=== PATIENT | female | born 1980 | race Caucasian/White ===

== ENCOUNTER 2019-12-11 16:02 | Inpatient (IN) | payer OTHER, SELFPAY ==
[~2019-12-11] VITALS: Ht 154.9 cm; Wt 71.7 kg
[2019-12-11 16:06] VITALS: Ht 154.9 cm; Wt 71.7 kg
--- NOTE | 2019-12-11 16:11 | NUR ---
PLACED IN BED 14 FOR BEDSIDE TRIAGE, PT PALE, WARM AND DIAPHORETIC, DR DONALDSON MADE AWARE.
--- NOTE | 2019-12-11 16:21 | NUR ---
ASSUMED PATIENT CARE, NURSING ASSESSMENT COMPLETED. ENDORSING GENERALIZED WEAKNESS, N/V, DIZZINESS X 3-4 DAYS. PATIENT RECENTLY STARTED ON A NEW MED, LEVOTHYROXINE.
[2019-12-11 16:54] LABS: PLATELET COUNT 125 x10^3mcL (130-400); RED CELL DISTRIBUTION WIDTH 13.4 % (11.5-14.5)
[2019-12-11 17:02] LABS: CARBON DIOXIDE 22.6 mmol/L (21-32); CHLORIDE SERUM 99 mmol/L (98-107); GFR1 > 60 mL/min; GLUCOSE SERUM 113 mg/dL (74-106); POTASSIUM SERUM 3.5 mmol/L (3.5-5.1); SODIUM SERUM 133 mmol/L (136-145)
--- NOTE | 2019-12-11 17:12 | NUR ---
PT MEDICATED PER EMAR, PT DENIES ANY CHANCE OF AT TIME OF TECHNICAL TRAINING SPECIALIST.
[2019-12-11 17:15] LABS: ALKALINE PHOSPHATASE 71 U/L (46-116); ALT/SGPT 46 U/L (14-59); AST/SGOT 37 U/L (15-37); BAND NEUTROPHIL 8 % (0-10); BASOPHIL 0 % (0-2); BILIRUBIN TOTAL 0.4 mg/dL (0.20-1.00); FREE T4 0.93 ng/dL (0.76-1.46); MAGNESIUM 1.6 mg/dL (1.8-2.4); METAMYELOCTE 1 % (0-2); MONOCYTE 10 % (0-7); MYELOCYTE 1 % (0-2); SEGMENTED NEUTROPHILS 75 % (37-75); rbc morphology (normal/abnorm) NORMAL (NORMAL)
[2019-12-11 17:16] LABS: PLATELET MORPHOLOGY PLATELETS DECREASED
[2019-12-11 17:17] LABS: ALBUMIN 2.6 g/dL (3.4-5.0)
[2019-12-11 19:37] LABS: microscopic required? YES; urine erythrocyte 3+ (NEGATIVE)
--- NOTE | 2019-12-11 20:11 | NUR ---
PTS MOTHER CAME TO DROP OFF PTS PHONE BUSINESS BANKING MANAGER. PHONE BUSINESS BANKING MANAGER WAS LEFT WITH PT.
[2019-12-11] MEDS ORDERED: OXCARBAZEPINE300 M1 PO (20:34)
[2019-12-11] MEDS ORDERED: KEPPRA750 MG PO ×2 (20:36→20:37)
[2019-12-11] MEDS ORDERED: DEPAKOTE250 MG PO (20:55)
--- NOTE | 2019-12-11 21:00 | NUR ---
RECIEVED REPORT FROM ER NURSE FLORESITA
[2019-12-11 21:02] LABS: AMPHETAMINE QUAL UR NONE DETECTED (See below)
--- NOTE | 2019-12-11 21:50 | NUR ---
RECIEVED PATIENT FROM ER VIA [facility]. PATIENT WAS BROUGHT BY TRANSPORT. PATIENT WAS ABLE TO AMBULATE FROM [facility] TO BED WITHIN A SHORT DISTANCE. BED IN LOWEST AND LOCKED POSITION. CALL LIGHT WITHIN REACH. PATIENT ORIENTED TO ROOM SURROUNDINGS AND CALL LIGHT SYSTEM. WILL CONT TO MONITOR.
--- NOTE | 2019-12-12 00:05 | NUR ---
PATIENT REPORTED DURING MED PASS INCORRECT DOSAGE OF DEPAKOTE AND TRILEPTAL. PATIENT REQUESTED TO SPEAK TO DOCTORS REGARDING DOSAGE. PATIENT WAS ABLE TO REPORT BACK VERIFICATION OF CORRECT DOSAGE. COMMUNICATED WITH DOCTORS THE CORRECT DOSAGE OF EACH MEDICATION AND REQUESTED A ONE TIME DOSE FOR TONIGHT PATIENT REFUSED TO TAKE THE DOSAGE THAT WAS SCHEDULED. CORRECT DOSAGE OF DEPAKOTE IS 625MG BID AND TRLEPTAL 900MG BID. ALL COMFORT CARE ACCOUNTED FOR AT THIS TIME. BED IN LOWEST POSITION, CALL LIGHT WITHIN REACH. WILL CONTINUE TO MONITOR.
[2019-12-12 03:49] VITALS: BP 92/64
[2019-12-12 05:49] VITALS: BP 97/57
--- NOTE | 2019-12-12 07:35 | NUR ---
RECEIVED PT. IN BED A/A/O X3. NO SOB, NO N/V NOTED. PT. DENIES ANY PAIN AT THIS TIME. IVF NS RUNNING AT 100 CC/HR VIA IV SITE AT R AC. BED IN LOW POS., CALL LIGHT WITHIN REACH. SIDE RAILS UP X3.
[2019-12-12 08:00] LABS: CALCIUM 7.7 mg/dL (8.5-10.1); CARBON DIOXIDE 25.1 mmol/L (21-32); CHLORIDE SERUM 106 mmol/L (98-107); CREATININE SERUM 0.7 mg/dL (0.6-1.0); GFR1 > 60 mL/min; GLUCOSE SERUM 85 mg/dL (74-106); MAGNESIUM 1.9 mg/dL (1.8-2.4); PHOSPHOROUS 1.9 mg/dL (2.5-4.9); POTASSIUM SERUM 3.7 mmol/L (3.5-5.1); SODIUM SERUM 139 mmol/L (136-145)
[2019-12-12 08:09] LABS: PLATELET COUNT 119 x10^3mcL (130-400); RED CELL DISTRIBUTION WIDTH 13.4 % (11.5-14.5)
[2019-12-12 08:52] VITALS: BP 77/41; BP 98/61
--- NOTE | 2019-12-12 09:03 | NUR ---
RECEIVED ORDER FOR CT GUIDED ABSCESS DRAINAGE FOR RUPTURED APPENDIX. SPOKE WITH RADIOLOGIST CIRCUIT JUDGE DR CAMACHO. HE WOULD LIKE THE SURGEON TO SEE THE PATIENT FIRST. NOTIFIED PATIENT'S NURSE MICHAEL.
[2019-12-12 11:14] LABS: BAND NEUTROPHIL 2 % (0-10); MONOCYTE 10 % (0-7); SEGMENTED NEUTROPHILS 76 % (37-75); rbc morphology (normal/abnorm) NORMAL (NORMAL)
[2019-12-12 12:08] VITALS: BP 104/56
--- NOTE | 2019-12-12 12:25 | NUR ---
PT. IS BEING PLACED ON TELE. MONITOR #16 PER PHYSICIAN'S ORDER. TELE. MONITOR SHOWS NSR.
[2019-12-12 16:14] VITALS: BP 133/62
--- NOTE | 2019-12-12 17:45 | NUR ---
REMAINS IN STABLE CONDITION AT THIS TIME. WILL CONTINUE TO MONITOR.
--- NOTE | 2019-12-12 19:40 | NUR ---
RECEIVED PT FROM DAYSRIFT NURSE. PT IS AAOX4, DENIES HEADACHE/NAUSEA/ DIZZINESS. PT IS TELE #16, NSR, DENIES CHEST PAIN. PULSES ARE EQUAL BILATERALLY, NO EDEMA NOTED. PT IS CTA, ON RA, DENIES SOB. NO ACUTE DISTRESS NOTED, EVEN AND UNLABORED BREATHING. PT HAS ACTIVE BOWEL SOUNDS, LAST BM REPORTED ON 12/07 WATERY STOOL. PT REPORTS INTERMITTENT ABDOMINAL PAIN, ALLEVIATED WITH PAIN MEDICATION PRN. PT VOIDS WITHOUT DIFFICULTY. IV IS TO RFA, SITE IS INTACT, NO REDNESS OR SWELLING NOTED. PT IS CALM ADN COOPERATIVE. BED IN LOWEST POSITION, CALL LIGHT WITHIN REACH. WILL CONTINUE TO MONITOR.
[2019-12-12 21:22] VITALS: BP 106/77
--- NOTE | 2019-12-12 23:10 | NUR ---
PATIENT REPORTED DURING MED PASS INCORRECT DOSAGE OF DEPAKOTE AND TRILEPTAL. PATIENT REQUESTED TO SPEAK TO DOCTORS REGARDING DOSAGE. PATIENT WAS ABLE TO REPORT BACK VERIFICATION OF CORRECT DOSAGE. COMMUNICATED WITH DOCTORS THE CORRECT DOSAGE OF EACH MEDICATION AND REQUESTED A ONE TIME DOSE FOR TONIGHT A PATIENT REFUSED TO TAKE THE DOSAGE THAT WAS SCHEDULED. CORRECT DOSAGE OF DEPAKOTE IS 625MG BID AND TRLEPTAL 900MG BID. ALL COMFORT CARE ACCOUNTED FOR AT THIS TIME. BED IN LOWEST POSITION, CALL LIGHT WITHIN REACH. WILL CONTINUE TO MONITOR.
[2019-12-13 05:56] VITALS: BP 110/58
[2019-12-13 06:41] LABS: PLATELET COUNT 158 x10^3mcL (130-400); RED CELL DISTRIBUTION WIDTH 14.1 % (11.5-14.5)
[2019-12-13 06:42] LABS: CALCIUM 7.7 mg/dL (8.5-10.1); CHLORIDE SERUM 109 mmol/L (98-107); CREATININE SERUM 0.6 mg/dL (0.6-1.0); GFR1 > 60 mL/min; GLUCOSE SERUM 69 mg/dL (74-106); PHOSPHOROUS 2.7 mg/dL (2.5-4.9); POTASSIUM SERUM 3.9 mmol/L (3.5-5.1); SODIUM SERUM 142 mmol/L (136-145)
--- NOTE | 2019-12-13 07:10 | NUR ---
SEEN RESTING WITH EYES CLOSED. BREATHING E/U ON ROOM AIR. TELE#[address] HR=91. KEPT NPO X MEDS. IVF NS TO RAC INFUSING WELL. BRP. CALL LIGHT PLACED WITHIN EASY REACH, SIDERAILS UPX2.
--- NOTE | 2019-12-13 07:26 | NUR ---
PATIENT RESTED INTERMITTENTLY WITH NO ACUTE DISTRESS NOTED. PATIENT REPORTED ABDOMINAL PAIN, GIVEN NORCO PRN. PATIENT ABLE TO AMBULATE TO THE RESTROOM WITH SLOW GAIT. NO ACUTE CHANGES IN PATIENTS STATUS AT THIS TIME. BED IN LOWEST POSITION, CALL LIGHT WITHIN REACH. ENDORSED CARE TO DAYSHIFT NURSE.
[2019-12-13 07:39] VITALS: BP 103/44
--- NOTE | 2019-12-13 09:15 | NUR ---
AM SCHEDULED MEDS GIVEN. NO ANY SEIZURE ACTIVITY NOTED. IVF NS INFUSING WELL TO RAC IV SITE. STATED ABDOMINAL PAIN IS TOLERABLE AT THIS TIME.
[2019-12-13 11:32] LABS: BAND NEUTROPHIL 2 % (0-10); MONOCYTE 10 % (0-7); SEGMENTED NEUTROPHILS 78 % (37-75); rbc morphology (normal/abnorm) NORMAL (NORMAL)
[2019-12-13 12:00] VITALS: BP 108/71
--- NOTE | 2019-12-13 12:10 | NUR ---
C/O OF IV SITE TO RAC HURTING, NO ERYTHEMA OR SWELLING, IV CATHETER REMOVED DRSG APPLIED. NEW IV CATHETER#2O INSERTED TO LFA IV SITE WITH GOOD BLD RETURNED AND FLUSHED WELL. PATIENT MADE AWARE OF LAPAROSCOPIC APPENDECTOMY, STATED DOCTOR CECILLE ALREADY EXPLAINED TO HER. CONSENT FOR LAPAROSCOPIC APPENDECTOMY SIGNED BY PATIENT WHO IS AWAKE, ALERT, ORIENTED X4.
--- NOTE | 2019-12-13 12:14 | NUR ---
BROUGHT TO OR VIA BED. NO ANY DISTRESS NOTED.
--- NOTE | 2019-12-13 15:33 | NUR ---
RECEIVED BACK FROM OR VIA BED, S/P LAP APPENDECTOMY, SEEN DROWSY, RESTING WITH EYES CLOSED, EASILY TO AROUSE. O2 2LPM INPLACE, O2SAT 94%, SURGICAL INCISION TO ABDOMEN X3 COVERED WITH BANDAID CDI, LEIGH SITE TO RLQ WITH DRSG NOTED WITH BLOOD STAIN, DRAIN TO BULB NOTED SEROSANGUNOUS IN COLOR. TELE# INPLACE ST GW=645. IVF NS TO LAC RECONNECTED AND INFUSING AT 100ML/HR. CALL LIGHT PLACED WITHIN EASY REACH, SIDERAIL UP X2. WILL CONTINUE TO MONITOR.
[2019-12-13 15:41] VITALS: BP 128/77
[2019-12-13 17:13] VITALS: BP 116/79
--- NOTE | 2019-12-13 17:50 | NUR ---
FEBRILE 100.1, TYLENOL PO GIVEN. WILL CONTINUE TO MONITOR.
--- NOTE | 2019-12-13 19:00 | NUR ---
NO ANY DISTRESS THROUGHOUT SHIFT. DENIES NAUSEA. MORPHINE 3MG IVP GIVEN X1 FOR SURGICAL SITE PAIN WITH GOOD RELIEF. O2 2LPM MAINTAINED, O2SAT 95%. KEPT NPO. IVF D5NS AT 70ML/HR INFUSING WELL TO RFA IV SITE.
--- NOTE | 2019-12-13 19:50 | NUR ---
REPORT RECIEVED FROM DAY SHIFT NURSE, PT RESTING IN BED, EASILY AROUSABLE, A&OX4, SEIZURE PRECAUTION IN PLACE. PT. DENIES SINGER, N/V, RR EVEN AND UNLABORED, CHEST RISE SYM., SLGHT SOB WHEN AMBULATING, TELE 16 NSR, DENIES CHEST PAIN/ PRESSURE, LEIGH DRAIN 50ML SERASANGUINEOUS, R WRIST IV INTACT AND WNL, BED IN LOWEST POSITION, CALL LIGHT WITHIN REACH, SIDE RAILS UPX2, WILL CONTINUE TO MONITOR.
--- NOTE | 2019-12-14 01:23 | NUR ---
PT. RESTING IN BED, EASILY AROUSABLE, RR EVEN AND UNLABORED, PT. ON RA, CHEST RISE SYMT, TELE 16 NSR, LEIGH DRAIN SERASANGOUS, LEIGH INCISION DRESSING DCI, R WRIST IV WNL, BED IN LOWEST POSITION, CALL LIGHT WITHIN REACH, SIDE RAILS UP X2, SEIZURE PRECUATION IN PLACE, WILL CONTINUE TO MONITOR.
[2019-12-14 05:08] VITALS: BP 115/74
--- NOTE | 2019-12-14 06:37 | NUR ---
PT. RESTING IN BED W/ EYES CLOSED, NO FACIAL DROOP NOTED, CALM AND COOPERATIVE W/ CARE. RR EVEN AND UNLABORED, CHEST RISE SYMT, PT. ON RA, PT. DENIES CHEST PAIN/ PRESSURE. TELE BOX 16 ST. LEIGH DRAIN 120ML SEROSANGUINEOUS, LEIGH DRAIN INCISION DCI, BANDAIDX3 LLQ, LUQ, MID [place]. SIEZURE PRECUATION IN PLACE, BED IN LOWEST POSITION, CALL LIGHT WITHIN REACH, SR UPX2, WILL ENDORSE TO DAY SHIFT NURSE.
[2019-12-14 06:47] LABS: PLATELET COUNT 202 x10^3mcL (130-400); RED CELL DISTRIBUTION WIDTH 14.2 % (11.5-14.5)
[2019-12-14 07:09] LABS: CALCIUM 7.8 mg/dL (8.5-10.1); CHLORIDE SERUM 108 mmol/L (98-107); CREATININE SERUM 0.6 mg/dL (0.6-1.0); GFR1 > 60 mL/min; GLUCOSE SERUM 126 mg/dL (74-106); POTASSIUM SERUM 3.4 mmol/L (3.5-5.1); SODIUM SERUM 141 mmol/L (136-145)
--- NOTE | 2019-12-14 07:52 | NUR ---
RECEIVED REPORT FROM RADIATION PROTECTION SPECIALIST NURSE. PT IS LAYING IN BED WITH EYES CLOSED. NO SEIZURE ACTIVITY. SEIZURE PADS IN PLACE. PT IS AAOX4. PT DENIES SOB, BREATHING EVEN AND UNLABORED ON 2L NC. TELE #16 SINUS TACHY. PT DENIES CHEST PAIN AND PRESSURE AT THIS MOMENT. S1 AND S2 SOUNDS HEARD, PULSES ARE PALPABLE ON BLE. NO SIGNS OF EDEMA, CAP REFILL <3S. PT WAS COMPLAINING OF PAIN AT INCISION SITE, 10/10; GAVE PO NORCO 7.5MG/325 WILL REASSESS AFTER AN HOUR. INCISION SITE: 3 BANDAIDS AND 1 LEIGH DRAIN SITE, DRY BLOOD STAIN. LEIGH DRAINING SEROSANGUINEOUS. STOMACH IS SOFT AND DISTENDED WITH HYPOACTIVE BOWEL SOUNDS. PT STATING PASSED GAS AND REMAINS NPO. PT WENT UP TO THE BATHROOM WITH MINIMAL ASSISTANCE. PT VOIDED WITH NO DYSURIA. IV ON RIGHT WRIST, D5 NS RUNNING AT 70ML/HR. NO SIGNS OF SWELLING AND REDNESS AT SITE. SCDS AT BLE IN PLACE. CALL LIGHT WITHIN REACH AND BED IN LOWEST POSITION. WILL CONTINUE TO MONITOR.
[2019-12-14 08:16] VITALS: BP 106/73
[2019-12-14 12:05] VITALS: BP 102/73
--- NOTE | 2019-12-14 13:10 | NUR ---
PT COMPLAINING OF PAIN AT INCISION SITE. 04/17. GAVE PRN NORCO 7.5/325MG. WILL REASSESS AND CONTINUE TO MONITOR.
--- NOTE | 2019-12-14 14:10 | NUR ---
PT LAYING DOWN AT BEDSIDE WITH EYES CLOSED, HOB SLIGHTLY ELEVATED. PT ENCOURAGED TO AMBULATE, SCDS IN PLACE. WILL CONTINUE TO MONITOR.
[2019-12-14 17:02] VITALS: BP 117/75
[2019-12-14 17:15] LABS: BAND NEUTROPHIL 4 % (0-10); MONOCYTE 16 % (0-7); SEGMENTED NEUTROPHILS 68 % (37-75)
[2019-12-14 17:16] LABS: PLATELET MORPHOLOGY PLATELETS NORMAL
[2019-12-14 17:22] LABS: rbc morphology (normal/abnorm) NORMAL (NORMAL)
--- NOTE | 2019-12-14 19:28 | NUR ---
PT ENDORSED TO ASPHALT MIXER NURSE. PT IS SITTING UP IN BED AND IS AWAKE. PTS IV ON RIGHT WRIST, 22G. FLUSHED AND PATENT. TELE #16, SINUS TACH 103. DENIES CHEST PAIN AT THIS TIME. PT IS ON NC 2L, FEELS SOB WHEN AMBULATING. PT NEEDS ASSISTANCE TO USE THE BATHROOM. PT STILL EXHIBITS ABD PAIN, 3 BANDAIDS AND 1 ON LEIGH. PT HAS SCDS ON. CALL LIGHT WITHIN REACH AND BED IN LOWEST POSITION.
--- NOTE | 2019-12-14 19:55 | NUR ---
REPORT RECIEVED FROM DAY SHIFT NURSE, PT. RESTING IN BED, EASILY AROUSABLE, A&OX4, ABLE TO FOLLOW COMMANDS, SPEECH CLEAR, NO FACIAL DROOP NOTED, PT. DENIES SINGER/ DIZZINESS. RR EVEN AND UNLABORED, CHEST RISE SYMT, PT ON 2L NC, REPORT SLIGHT SOB WHEN AMBULATING. TELE 16 ST, PT. DENIES CHEST PAIN/ PRESSURE. LEIGH DRAIN NOTED ON MID LOWER UMBLICAL REGION, SEROSANGUINEOUS DRAINAGE NOTED, LEIGH DRESSING DCI, SXI X3 LUQ, LLQ, UMBLICAL DRESSING DCI. SEIZURE PRECAUTION IN PLACE, SR UPX2, BED IN LOWEST POSITION, CALL LIGHT WITHIN REACH, WILL CONTINUE TO MONITOR.
[2019-12-14 20:17] VITALS: BP 165/81
--- NOTE | 2019-12-15 00:12 | NUR ---
PT. RESTING IN BED W/ EYES CLOSED, NO FACIAL DROOP NOTED. RR EVEN AND UNLABORED ON 2L NC, CHEST RISE SYMT. TELE 16 ST. NO SIGNS OF ACUTE DISTRESS NOTED. LEIGH DRAIN SEROSANG, LLQ, LUQ, UMBILICAL REGION SURGICAL INCISION DRESSING DCI. SEIZURE PRECUATION IN PLACE, BED IN LOWEST POSITION, CALL LIGHT WITHIN REACH, WILL CONTINUE TO MONITOR.
[2019-12-15 04:46] VITALS: BP 113/73
[2019-12-15 06:39] LABS: BASOPHIL % 0.1 % (0-2); PLATELET COUNT 237 x10^3mcL (130-400); RED CELL DISTRIBUTION WIDTH 14.5 % (11.5-14.5)
--- NOTE | 2019-12-15 06:45 | NUR ---
PT. RESTING IN BED, EASILY AROUSABLE, NO FACIAL DROOP NOTED, RR EVEN AND UNLABORED ON 2L NC, CHEST RISE SYMT, PT. DENIES SOB. TELE BOX 16, PT. DENIES CHEST PAIN/PRESSURE. LEIGH DRAIN SERASANG, LLQ, LUQ, MID UMBLICAL REGION SURGICAL DRESSING DCI. SEIZURE PRECUATION IN PLACE, BED IN LOWEST POSITION, CALL LIGHT WITHIN REACH, WILL REPORT TO DAY SHIFT NURSE.
[2019-12-15 06:53] LABS: CALCIUM 8.3 mg/dL (8.5-10.1); CARBON DIOXIDE 29.9 mmol/L (21-32); CHLORIDE SERUM 110 mmol/L (98-107); CREATININE SERUM 0.7 mg/dL (0.6-1.0); GFR1 > 60 mL/min; GLUCOSE SERUM 104 mg/dL (74-106); POTASSIUM SERUM 4.1 mmol/L (3.5-5.1); SODIUM SERUM 145 mmol/L (136-145)
--- NOTE | 2019-12-15 08:00 | NUR ---
NN; PT GCS 15, RR E/U, VSS, AMBULATORY W/ SLOW GAIT D/T PAIN, AMBULATED TO BATHROOM, 50ML SANGUINOUS FLUID DRAINED FROM LEIGH DRAIN. PT C/O ABDOMINAL PAIN 12/15. WILL CONTINUE TO ASSESS/MONITOR/UPDATE PT ON PLAN OF CARE WHILE ON FLOOR.
[2019-12-15 08:19] VITALS: BP 106/73
[2019-12-15 12:14] VITALS: BP 125/84
--- NOTE | 2019-12-15 13:00 | NUR ---
NN; PT REPORTED FEELING SHORT OF BREATH WHILE LAYING DOWN, O2 SAT 93% ON ROOM AIR, IMPROVED TO 100% AFTER 2LNC O2 PLACED.
--- NOTE | 2019-12-15 16:07 | NUR ---
NN; PT AMBULATED ONE TIME DOWN 2N HALLWAY.
[2019-12-15 16:30] VITALS: BP 113/84
--- NOTE | 2019-12-15 16:30 | NUR ---
NN; PHYSICAL THERAPY CAME TO SEE PT, PT O2 SAT 95% AFTER AMBULATING DOWN HALLWAY.
--- NOTE | 2019-12-15 17:00 | NUR ---
NN; PT RESTING IN BED AT THIS TIME, RR E/U, VSS. EDUCATED PT ON IMPORTANCE OF INCENTIVE SPIROMETRY TO PREVENT POST OP COMPLICATIONS, ENCOURAGED PT TO AMBULATE, & TO REPORT PAIN FOR PROPER PAIN CONTROL. PT VERBALIZED UNDERSTANDING. SLEEPING AT THIS TIME. IVF INFUSING TO L HAND WITHOUT DIFFICULTY. WILL CONTINUE TO ASSESS/MONITOR/UPDATE PT ON PLAN OF CARE DURING SHIFT. SAFETY/SEIZURE PRECAUTIONS REMAIN IN PLACE.
--- NOTE | 2019-12-15 17:08 | NUR ---
P.T. NOTES P.T. EVAL COMPLETED; REFER TO EVAL FOR DETAILS; ENDORSED TO NURSING. O2 SAT ROOM AIR=93^96%
--- NOTE | 2019-12-15 19:45 | NUR ---
RECEIVE PT LETHARGIC AT THIS TIME BUT EASILY AROUSABLE, GCS 15, NO DISTRESS IN RA. DRESSING ON ABD C/D/I. IVF RUNNING ORDERED, SITE INTACT. SAFETY MEASURES IN PLACE, FALL AND SEIZURE PROTOCOL. CALL LIGHT WITHIN REACH. WILL CONTINUE TO MONITOR.
[2019-12-15 21:15] VITALS: BP 125/84
[2019-12-16 05:04] VITALS: BP 111/75
--- NOTE | 2019-12-16 06:28 | NUR ---
PT IS SLEEPING BUT EASILY AROUSABLE, GCS 15, NO DISTRESS NOTED IN RA. ALL VS WDL AND DENIES ANY PAIN/DISCOMFORT AT THIS TIME. DRESSING ON ABD C/D/I AND LEIGH DRAIN IN PLACE, OTHERWISE, SKIN INTACT. HYPOACTIVE BS IN ALL QUADRANTS, STILL NO BM BUT IS PASSING GAS PER PT. PT IS AMBULATORY WITH STANDBY ASSIST FOR SAFETY. FALL AND SEIZURE PROTOCOL IN PLACE. CALL LIGHT WITHIN REACH. NO ACUTE EVENTS OVERNIGHT, ALL NEEDS WERE MET.
[2019-12-16 06:30] LABS: BASOPHIL % 0.3 % (0-2); PLATELET COUNT 277 x10^3mcL (130-400)
[2019-12-16 07:00] LABS: RED CELL DISTRIBUTION WIDTH 14.9 % (11.5-14.5)
[2019-12-16 07:16] LABS: CALCIUM 8.2 mg/dL (8.5-10.1); CARBON DIOXIDE 26.4 mmol/L (21-32); CHLORIDE SERUM 109 mmol/L (98-107); CREATININE SERUM 0.6 mg/dL (0.6-1.0); GFR1 > 60 mL/min; GLUCOSE SERUM 106 mg/dL (74-106); POTASSIUM SERUM 3.7 mmol/L (3.5-5.1); SODIUM SERUM 143 mmol/L (136-145)
--- NOTE | 2019-12-16 07:45 | NUR ---
RECEIVED PATIENT LETHARGIC BUT EASILY AROUSABLE. PATIENT ON 2L 02 VIA NC, RESPIRATIONS EVEN AND UNLABORED. LEIGH DRAINING CLEAR STRAW COLORED FLUID. DENIES CHAST PAIN OR CARDIAC DISCOMFORT. BED IN LOW POSITION, SEIZURE PRECAUTIONS IN PLACE. CALL LIGHT IN REACH.
[2019-12-16 07:53] VITALS: BP 161/83
--- NOTE | 2019-12-16 08:30 | NUR ---
AT 0830 I HAD PATIENT AMBULATE ON RA WITH A PULSE OX ON HER FINGER. HER OXYGEN LEVEL DROPPED FROM 95% ON RA SITTING IN BED, TO 77% O2 SAT TOWARDS END OF HER AMBULATION. SHE AMBULATED TO THE SOUTH ELEVATOR AND BACK. SHUBHAM RETANA WAS PRESENT, AND IS AWARE OF THIS.
--- NOTE | 2019-12-16 10:22 | NUR ---
DR ODEN AWARE OF RECENT LEIGH OUTPUT AND ABOUT THE PATIENT'S O2 SAT DROPPING TO 77% WHILE AMBULATING. SHE TALKED WITH [facility]NA[facility] AND THEY ARE ORDERING VARIOUS TESTS. ULTIMATLEY, DR ODEN MIGHT WANT A CT ANGIO SHE SAID, IF ALL OTHER TESTS ARE NEGATIVE. I WILL FOLLOW UP WITH [facility]NA[facility] ABOUT THE CT ANGIO LATER.
[2019-12-16 12:34] VITALS: BP 118/77
[2019-12-16 13:00] LABS: BILIRUBIN DIRECT 0.08 mg/dL (0.0-0.2); BILIRUBIN TOTAL 0.16 mg/dL (0.20-1.00)
[2019-12-16 13:30] LABS: ALBUMIN 1.8 g/dL (3.4-5.0); TOTAL PROTEIN, SERUM 5.7 g/dL (6.4-8.2)
[2019-12-16 18:10] VITALS: BP 112/72
--- NOTE | 2019-12-16 18:28 | NUR ---
PATIENT RESTING IN BED, RESPIRATIONS EVEN AND UNLABORED ON 2LO2. NO APPARENT DISTRESS. IV INFUSING D5NS AT 70ML/HR, IV SITE CDI, PATENT. LEIGH DRAIN TO ABD, DRAINING CLEAR STRAW COLORED FLUID, ABD DRESSING CDI. NO C/O PAIN OR DISCOMFORT. BED IN LOW POSITION, CALL LIGHT IN REACH. SAFETY MEASURES IN PLACE. WILL ENDORSE TO ONCOMING NURSE.
--- NOTE | 2019-12-16 18:53 | NUR ---
NURSING CO-SIGN THE DOCUMENTATION ENTERED BY THE IP HAS BEEN REVIEWED. REVIEWED/CO-SIGNED BY: Blank Dooley RN DOCUMENTATION DONE BY: SHUBHAM DUARTE RN
--- NOTE | 2019-12-16 19:40 | NUR ---
RECEIVED PT FROM AM NURSE, PT AWAKE IN BED RESTING. PT COMPLAINING OF NAUSEA AND PAIN. AA/O X 4, ABLE TO MAKE NEEDS KNOWN, CLEAR SPEECH. HX. OF SEIZURES, PT COMPLIANT WITH SZ MEDICATIONS. SZ PRECAUTIONS IN PLACE, SIDE RAILS PADDED X 2. BED IN LOWEST POSITION. DENIES HEADACHE/ DENIES DIZZINESS. MED SURG PT, DENIES CHEST PAIN/ CHEST PRESSURE. PULSES PALPABLE, NO EDEMA. LUNG SOUNDS CTA, PT ON 2 LPM OF O2 VIA NC, SPO2 98% AT REST WHILE IN BED. DENIES SOB, RESPIRATIONS E/U. NO RESPIRATORY DISTRESS AT THIS TIME. HYPOACTIVE BS X 4 QUADS, ABD IS SOFT AND NON DISTENDED. ABD IS TENDER. CHAUNCEY INTACT, CDI. PT COMPLAINS OF CONSTIPATION. WILL GET PRN ORDER, COLACE HAS BEEN INEFFECTIVE. VOIDS FREELY, BRP WITH STANDBY ASSIST. GENERALIZED WEAKNESS. SKIN INTACT. IV TO LH INTACT, NO ERYTHEMA/ NO INFILTRATION. IV FLUIDS INFUSING WELL. CALL BUTTON WITHIN REACH, WILL CONTINUE TO MONITOR.
[2019-12-16 20:39] VITALS: BP 113/81
--- NOTE | 2019-12-16 21:10 | NUR ---
UPDATED ON PATIENT'S CONDITION. AM NURSE REPORTED THAT PT WAS DESATING DOWN TO THE 70'S ON ROOM AIR DURING AMBULATION. PT WAS PUT ON 2 LPM OF O2 VIA NC DURING THE AM SHIFT. RESPIRATIONS E/U AT THIS TIME ON 2 LPM OF O2. ORDERED PT TO BE PUT BACK ON TELE FOR 02 MONITORING. TELE MONITOR #16 PLACED ON PT. CONTINUOUS PULSE OX #2 PLACED ON PT. WHILE AT REST AND SITTING IN BED, PT SPO2 SAT IS 99% ON 2 LPM OF O2. DENIES SOB. WILL CONTINUE TO MONITOR.
--- NOTE | 2019-12-16 23:40 | NUR ---
LEIGH DRAIN EMPTIED. 100 CC OF YELLOW OUTPUT DISCARDED INTO TOLIET FROM LEIGH DRAIN.
--- NOTE | 2019-12-17 00:33 | NUR ---
PT IN BED RESTING WITH EYES CLOSED, BUT EASILY AROUSABLE. RESPIRATIONS E/U ON 2 LPM OF O2 VIA NC. SPO2 100% VIA CONTINUOUS PULSE OX READING. PT DENIES PAIN AT THIS TIME. CALL BUTTON WITHIN REACH, WILL CONTINUE TO MONITOR.
[2019-12-17 04:45] VITALS: BP 125/77
--- NOTE | 2019-12-17 06:21 | NUR ---
PT SLEPT IN INTERVALS THROUGHOUT THE NIGHT, BUT EASILY AROUSABLE. NO ACUTE CHANGES OVERNIGHT. DENIES PAIN AT THIS TIME. ALL SCHEDULED MEDICATIONS GIVEN AND TAKEN BY PATIENT ORDERED. IV FLUIDS INFUSING WELL. SPO2 > 95% DURING THE NIGHT. CALL BUTTON WITHIN REACH, WILL ENDORSE CARE TO AM RN.
--- NOTE | 2019-12-17 08:09 | NUR ---
RECEIVED REPORT FROM A REHABILITATION THERAPIST NURSE. PT IS ALERT AND ORIENTED. SITTING UP COMFORTABLY IN BED. DENIES ANY CP, SOB AT THIS TIME. GETS OXYGEN 2L NC. CONTINUOUS O2 SAT 96%. TELE#16. SR 82. IV TO L HAND INFUSING D5NS AT 70ML/HR. NO ERYTHEMA, PAIN NOTED. INCITION #1 TO LOWER ABDOMEN, CHAUNCEY OPEN TO AIR, NO DRAINAGE, NO ERYHTEMA NOTED. INCITION #2, CDI. NO DRAINAGE NOTED. SEZUIRE PRECATIONS IN PLACE. WILL CONTINUE TO MONITOR.
[2019-12-17 08:10] VITALS: BP 109/77
[2019-12-17 10:21] LABS: BASOPHIL % 0.7 % (0-2); PLATELET COUNT 234 x10^3mcL (130-400); RED CELL DISTRIBUTION WIDTH 14.5 % (11.5-14.5)
--- NOTE | 2019-12-17 10:28 | NUR ---
PT IS SITTING UP IN BED. A/O X4. RECEIVED ORDER TO CHANGE IV D5NS RATE TO 30ML/HR. CHANGED IV RATE TO 30ML/HR PER EMAR.
--- NOTE | 2019-12-17 10:48 | NUR ---
NASAL SWAB FOR MRSA SCREEN COLLECTED AND TAKEN TO LAB.
[2019-12-17 12:15] VITALS: BP 108/79
--- NOTE | 2019-12-17 13:53 | NUR ---
1230 PT AMBULATED TO THE BATHROOM. NO SOB OR CP REPORTED/NOTED. EMPTED LEIGH TUBE BOLB 40ML OUT SEROUS LIQUID. LEAKAGE NOTED AROUND LEIGH DRAIN TUBE. CHANGED THE DRESSING AND REINFORCED. WILL CONTINUE TO MONITOR.
--- NOTE | 2019-12-17 14:48 | NUR ---
PT WAS SEEN BY RT AND ASSESSED FOR ALBUTEROL NEED. GOT THE ORDER TO CHANGE ALBUTEROL TO PRN. PT TOLERATED BREATHING ON RA WELL. NO SOB NOTED, O2 SAT 94%.REDUCED NC TO 1L. WILL CONTINUE TO MONITOR.
[2019-12-17 14:57] VITALS: BP 108/79
--- NOTE | 2019-12-17 15:21 | NUR ---
PATIENT HAVING NAUSEA. VOMITED AFTER TAKING PO LIQUIDS. MEDICATED WITH ZOFRAN PER EMAR.
--- NOTE | 2019-12-17 15:48 | NUR ---
PT AMBULATED IN THE HALLWAY. O2 SAT 98%-100%. O2 UPPLY NC ON 2L. DENIES SOB, DIZZINESS. REPORTS INCREASE IN PAIN. DENIES MEDS AT THIS TIME. WILL CONTINUE TO MONITOR.
[2019-12-17 16:15] VITALS: BP 132/81
--- NOTE | 2019-12-17 17:42 | NUR ---
PT CHANGED TO REGULAR DIET. VS STABLE. REMAINS AFEBRILE. O2 NC 1L. O2 SAT 97%. PT. USES INCENSITIVE SPIROMETRY INSTRUCTED.
--- NOTE | 2019-12-17 18:46 | NUR ---
PT AMBULATED IN THE HALLWAY WITH ASSIST AND PORTABLE OXYGEN ON 2L NC. O2 SAT 97%. NO SOB, CP NOTED. IV D5NS INFUSING AT 30ML/HR. IV SITE CDI, PATENT, INTACT. LEIGH DRAINAGE SEROSANQUINEOUS. DRAINED 40 ML. PT VOMITED, GREEN EMESIS 200 ML. LAST DOSE OF ZOFRAN GIVEN AT 1516 PER EMAR. WILL CONTINUE TO MONITOR. PT A/O X4.COMFORTABLY SITTING UP IN BED.
--- NOTE | 2019-12-17 19:10 | NUR ---
REC'D PT FROM DAY NURSE. PT RESTING IN BED. AAOX4, SPEECH CLEAR, FOLLOWS COMMANDS. SZ PREC IN PLACE. TELE 16. DENIES CP, DIZZINESS, OR PALPITATIONS. DENIES RESP DISTRESS OR SOB. BREATHING EVEN/UNLABORED ON 1L NC, SPO2 99%. TRACE NONPITTING EDEMA AMPARO. ABD SOFT/ROUND. S/P LAP APPE. LEIGH TO LOWER ABD DRAINING SEROUS FLUID. DRAINAGE LEAKING TO DRESSING- WILL CHANGE. ABD INCISIONS X2, CHAUNCEY CDI. REPORTS NAUSEA, WILL MEDICATE WITH ZOFRAN. ALSO REPORTS 4/10 ABD PAIN AND TENDERNESS, TOLERABLE. IV TO LH PATENT AND INFUSING WELL, SITE WNL. CALL LIGHT WITHIN REACH, BED AT LOWEST POSITION. WILL CONTINUE TO MONITOR.
[2019-12-17 20:26] VITALS: BP 134/89
--- NOTE | 2019-12-17 22:30 | NUR ---
HEAVY SEROUS DRAINAGE TO ABD PAD DRESSING. REMOVED AND APPLIED SPONGE DRAIN WITH ABD ON TOP. SECURED WITH PAPER TAPE. PT ALSO VOMITED 400 ML BILIOUS FLUID WITH FOOD PARTICLES. DR. SHAW MADE AWARE.
--- NOTE | 2019-12-18 | NUR ---
PT C/O SEVERE LOWER ABD PAIN. MORPHINE GIVEN PER ORDER. WILL CONTINUE TO MONITOR.
--- NOTE | 2019-12-18 01:41 | NUR ---
PT RESTING IN BED WITH EYES CLOSED. NO SIGNS OF DISTRESS OR PAIN NOTED. BREATHING EVEN/UNLABORED ON RA. CALL LIGHT WITHIN REACH, BED AT LOWEST POSITION. WILL CONTINUE TO MONITOR.
[2019-12-18 05:10] VITALS: BP 107/74
--- NOTE | 2019-12-18 05:38 | NUR ---
PT AWAKE AND RESTING IN BED. C/O N/V. ZOFRAN GIVEN. REPORTED VOMITING TWO MORE TIMES. EMESIS BAG THROWN AWAY BY SEWAGE RETICULATION DRAFTING OFFICER. NO COMPLAINTS OF ABD PAIN AT THIS TIME. ABD PAD TO LOWER ABD SATURATED WITH SEROUS FLUID. TOTAL OUTPUT FROM LEIGH: 95 ML SEROUS DRAINAGE. DRESSINGS TO LOWER ABD REMOVED AND REAPPLIED SPONGE DRAIN WITH ABD PAD AND SECURED WITH PAPER TAPE. INCISIONS WITH CHAUNCEY TO ABD CDI. PT REPORTS STARTING HER PERIOD. MODERATE SANGUINEOUS DRAINAGE. CALL LIGHT WITHIN REACH, BED AT LOWEST POSITION. WILL ENDORSE TO DAY NURSE.
[2019-12-18 06:25] LABS: CALCIUM 8.2 mg/dL (8.5-10.1); CARBON DIOXIDE 30.1 mmol/L (21-32); CHLORIDE SERUM 108 mmol/L (98-107); CREATININE SERUM 0.6 mg/dL (0.6-1.0); GFR1 > 60 mL/min; GLUCOSE SERUM 112 mg/dL (74-106); POTASSIUM SERUM 3.3 mmol/L (3.5-5.1); SODIUM SERUM 145 mmol/L (136-145)
[2019-12-18 06:32] LABS: BASOPHIL % 0.2 % (0-2); PLATELET COUNT 310 x10^3mcL (130-400)
[2019-12-18 07:04] LABS: RED CELL DISTRIBUTION WIDTH 14.7 % (11.5-14.5)
--- NOTE | 2019-12-18 07:30 | NUR ---
RECEIVED PT FROM PIANO BUILDER RN. Renee/JHONATAN. TELE#16. DENIES CHEST PAIN/PRESSURE. RESPIRATIONS EQUAL AND UNLABORED ON 1L NC, SPO2:97%, PT DOES REPORTS SOB UPON EXERTION, IS AT BEDSIDE ENCOURAGED PT TO USE. PT DENIES ANY N/V AT THIS TIME. PT IS REPORTS ABDOMINAL PAIN /10 TO OPERATIVE SITE, WILL MEDICATE PER EMAR. DRESSING TO ABDOMEN, CDI AT THIS TIME, LEIGH DRAIN IN PLACE, DRAINING SEROUS DRAINAGE. IV TO RH PATENT AND INFUSING, NO REDNESS OR SWELLING NOTED. WILL CONTINUE TO MONITOR. CALL LIGHT IN REACH. BED IN LOWEST POSITION.
[2019-12-18 07:57] VITALS: BP 109/73
--- NOTE | 2019-12-18 09:10 | NUR ---
PT SITTING UP IN BED. NO ACUTE RESP DISTRESS NOTED ON 1L NC. PT HAVING NAUSEA AND 1 EPISODE OF EMESIS AFTER EATING BREAKFAST. MEDICATED PER EMAR. PT REPORTING PAIN ACHING TO ABDOMEN 5/10, MEDICATED PER EMAR. PT REQUESTING TO TAKE PO MEDS AFTER NAUSEA HAS PASSED. WILL CONTINUE TO MONITOR. CALL LIGHT IN REACH. BED IN LOWEST POSITION.
[2019-12-18 12:05] VITALS: BP 109/73
--- NOTE | 2019-12-18 14:24 | NUR ---
1. Recommend continue mechanical soft diet 2. Recommend ensure QD for lunch. It will provide additional 350kcal and 20g protein.
--- NOTE | 2019-12-18 14:24 | NUR ---
Initial Nutrition Assessment: 237A LAURA DÍAZ 39F HR Nursing trigger: N/V/D > 3 days Dx: rapture appendicitis PMHx: Seizure, Hypothyroidism PSHx: none noted Labs: (12/17) WBC 12.2H, H/H 12/12/32L, K 3.3L, CL 108H, BG 112H, (12/15) albumin 1.8L Meds: Keppra, Folic acid, Trileptal, Depakote, Klor-con, Colace, vitamin B12, Lovenox, D5%, [place], Zofran, Flagyl, Morphine, Rocephin, Tylenol Diet: Mechanical soft diet PO intake since admission: 10-60% x 5 meals with average PO intake of 28% Ht: 154.94cm/61in Wt: 71.668kg/157.7lbs BMI: 29.9 Bed scale: 86.1kg IBW: 47.73kg/105lbs %IBW: 150.2% ABW: 54kg UBW: 135lbs pt stated that she did not remember Age: 39 Food Allergies: pt stated that she's allergic to medication, but NKFA Edema: Trace edema noted to from IV infiltration Last BM: 12/09 Skin: S/P lap appy, 2 abdominal incision with fiorella Joey: 19 Per H and P (12/10), The patient is a 39-year-old female with history of seizures and Hypothyroidism who comes in today with 4-day history of progressively worsening weakness and abdominal pain. Her pain was initially generalized but has transitioned into her periumbilical area with associated nausea, vomiting, and PO intolerance. Patient rates the pain as 9/10, non-radiating, no alleviating or exacerbating factors. Pt was admitted with dx: Sepsis, h/o seizure, Asymptomatic bacteriuria, megaloblastic anemia, peudohypocalcemia, hypomagnesemia, DVT RD Note (12/18/2019) Per progress note (12/17), pt remained on O2 2L via n/c and still had high LEIGH output. Pt was seen lying in bed, verbally responsive, but slow to respond during bedside visit. Pt reported experiencing nausea and vomiting and denied diarrhea, constipation, chewing/swallowing difficulty. Pt had poor appetite, and according to patient, she felt nauseous after she ate and she will usually fall asleep, but she wanted/tried to eat. At home, pt followed a modified Atkins diet, which helped pt with her seizure instead of trying to lose weight. Pt had weight loss of 30lbs, but it was from a long time ago, and pt reported that her usual body weight was 135lbs. However, pt could not recall when was usual weight measured. Additionally, pt stated that ensure clear made her throw up, and she was agreeable to try ONS once a day to see if she can tolerate. Problem with: N/V/D/C: nausea and vomiting Problems with: Chewing: Swallowing: none noted Current appetite: poor per observation Recent wt change: 30lbs wt loss but pt could not remember %wt change: n/a Height: 5'1"-5'2" Vitamin/Supplement use: Atkins protein supplement and slim fast per pt Special diet at home: modified [place] keto diet Physical activity: no, but pt reported walking every day before Nutrition education given (specify specific nutrition education and handout given): encouraged pt's PO intake, and pt was agreeable to try ONS. Food-drug interactions? Education given? n/a Estimated Nutritional Needs Based on adjusted body weight (54kg) Energy: 8473-3203 kcal/day (30-35 kcal/kg for maintenance) Protein: 81-108 g/day (1.5-2 g/kg for maintenance) Fluid: 3013-2885 mL/day (1 mL/kcal) Nutrition Diagnosis: 1. Inadequate energy and protein intake r/t poor PO intake a/e/b pt average PO intake of 28% meeting < 75% of estimated needs. 2. Altered GI function r/t raptured appendicitis a/e/b pt reported feeling nauseous and experiencing vomiting after eating. Intervention 1. Recommend continue mechanical soft diet 2. Recommend ensure QD for lunch. It will provide additional 350kcal and 20g protein. Monitor/Evaluate Goal: PO intake at least 75% of estimated needs Monitor: PO intake, Labs, GI function, Body weight, ONS intake F/U in 2-3 days as high risk 12/19-
--- NOTE | 2019-12-18 14:30 | NUR ---
PT SITTING UP IN BED. IV ANTIBIOTICS INFUSING ORDERED. NO ACUTE RESP DISTRESS NOTED ON 1L NC. PT REPORTING INCREASING ABDOMINAL PAIN. DRESSING SOILED TO ABDOMEN, PT PER MEDICATED WITH PAIN MEDICATION, WILL DO DRESSING CHANGE IN 30 MINUTES. EMPTIED LEIGH DRAIN 80ML OF SEROUS DRAINAGE NOTED. WILL CONTINUE TO MONITOR. CALL LIGHT IN REACH. BED IN LOWEST POSITION.
--- NOTE | 2019-12-18 15:29 | NUR ---
PT SITTING UP IN BED. NO ACUTE RESP DISTRESS NOTED ON 1L NC. DRESSING CHANGED DONE TO ABDOMEN, CLEANSED SITE WITH NS, PAT DRY, PT NOTED TO HAVE LEAKING FROM LEIGH DRAIN INCISION SITE, APPLIED SPONGE PAD TO ABDOMEN COVERED WITH ADB PAD AND TAPE. PT TOLERATED WELL. PT C/O BACK PAIN, ASSISTED PT WITH REPOSITIONING AND APPLIED 2 PILLOWS TO BACK. WILL CONTINUE TO MONITOR. CALL LIGHT IN REACH. BED IN LOWEST POSITION.
[2019-12-18 17:12] VITALS: BP 113/80
--- NOTE | 2019-12-18 19:41 | NUR ---
RECEIVED PT AWAKE/ALERT, GCS 15. NO DISTRESS NOTED AT 1L OXYGEN VIA NC. SR ON TELE, DENIES ANY PAIN/DISCOMFORT AT THIS TIME. LEIGH DRAIN IN PLACE. FALL PRECAUTION IN PLACE, CALL LIGHT WITHIN REACH. WILL CONTINUE TO MONITOR.
[2019-12-18 20:41] VITALS: BP 112/85
[2019-12-19] VITALS (7 sets, daily range): BP systolic 101–137; BP diastolic 56–76
--- NOTE | 2019-12-19 06:12 | NUR ---
PATIENT, AWAKE/ALERT, GCS 15. NO DISTRESS AT 1L OXYGEN VIA NC, NSR ON TELE. PAIN HAS BEEN MANAGED THROUGHOUT THE SHIFT. ALL VS WDL, NO EPSIODE OF N/V/D OVERNIGHT.LEIGH DRAIN IN PLACE STILL LEAKING, CHANGED DRESSING, LARGE AMT OF DRAIN NOTED. CHAUNCEY X 2 ENRICO, D/I. OTHERWISE NO OPEN AREA. FALL PRECAUTION IN PLACE, CALL LIGHT WITHIN REACH. PT AMBULATORY WITH STEADY GAIT. NO ACUTE EVENTS OVERNIGHT. ALL NEEDS WERE MET.
[2019-12-19 07:43] LABS: BASOPHIL % 0.4 % (0-2); PLATELET COUNT 284 x10^3mcL (130-400)
[2019-12-19 08:01] LABS: RED CELL DISTRIBUTION WIDTH 14.6 % (11.5-14.5)
[2019-12-19 08:04] LABS: ALKALINE PHOSPHATASE 76 U/L (46-116); ALT/SGPT 15 U/L (14-59); AST/SGOT 18 U/L (15-37); BILIRUBIN DIRECT 0.19 mg/dL (0.0-0.2); BILIRUBIN TOTAL 0.39 mg/dL (0.20-1.00); CALCIUM 7.5 mg/dL (8.5-10.1); CARBON DIOXIDE 33.3 mmol/L (21-32); CHLORIDE SERUM 107 mmol/L (98-107); CREATININE SERUM 0.6 mg/dL (0.6-1.0); GFR1 > 60 mL/min; GLUCOSE SERUM 96 mg/dL (74-106); POTASSIUM SERUM 3.5 mmol/L (3.5-5.1); SODIUM SERUM 143 mmol/L (136-145)
[2019-12-19 08:06] LABS: ALBUMIN 1.5 g/dL (3.4-5.0); TOTAL PROTEIN, SERUM 5.2 g/dL (6.4-8.2)
--- NOTE | 2019-12-19 19:35 | NUR ---
RECEIVED PT AWAKE/ALERT, GCS 15. NO DISTRESS NOTED IN RA. NSR ON TELE AND DENIES ANY PAIN/DISCOMFORT AT THIS TIME. LEIGH DRAIN IN PLACE, LEAKAGE ON SITE- MD AWARE. DRESSING C/D/I. FALL PRECAUTION IN PLACE, CALL LIGHT WITHIN REACH. WILL CONTINUE TO MONITOR.
[2019-12-20 05:21] VITALS: BP 118/78
--- NOTE | 2019-12-20 06:17 | NUR ---
PT AWAKE/ALERT, GCS 15. NO DISTRESS NOTED IN RA. NSR ON TELE, DENIES ANY PAIN/DISCOMFORT AT THIS TIME. ALL VS WDL. PT AMBULATES FREELY WITH STEADY GAIT. LEIGH DRAIN STILL LEAKING, CHANGED DRESSING NEEDED. CALL LIGHT WITHIN REACH, NO ACUTE EVENTS OVERNIGHT. ALL NEEDS WERE MET.
[2019-12-20 07:24] LABS: ALKALINE PHOSPHATASE 87 U/L (46-116); ALT/SGPT 13 U/L (14-59); AST/SGOT 23 U/L (15-37); BILIRUBIN TOTAL 0.4 mg/dL (0.20-1.00); CALCIUM 7.9 mg/dL (8.5-10.1); CARBON DIOXIDE 28.5 mmol/L (21-32); CHLORIDE SERUM 103 mmol/L (98-107); CREATININE SERUM 0.5 mg/dL (0.6-1.0); GFR1 > 60 mL/min; GLUCOSE SERUM 97 mg/dL (74-106); POTASSIUM SERUM 3.4 mmol/L (3.5-5.1); SODIUM SERUM 138 mmol/L (136-145)
[2019-12-20 07:26] LABS: ALBUMIN 2.1 g/dL (3.4-5.0); TOTAL PROTEIN, SERUM 5.9 g/dL (6.4-8.2)
[2019-12-20 07:32] LABS: BASOPHIL % 0.3 % (0-2); PLATELET COUNT 366 x10^3mcL (130-400)
[2019-12-20 07:33] LABS: RED CELL DISTRIBUTION WIDTH 14.6 % (11.5-14.5)
--- NOTE | 2019-12-20 08:00 | NUR ---
RECEIVED PATIENT WHO JUST RECEIVED HER ZOFRAN AND DENIES NAUSEA AT THIS TIME.PATIENT AHS DRESSING TO THE LOWER ABDOM NE INTACT AND LEIGH TO DRAINAGE AND THE LEIGH IS PUTTING OUT LITE PINKISH YELLOW AND OF ABOUT 15CC AT THIS TIME. PATIENT AHS BEEN OOB AND TOLERATED WELL. SHE HAS SOME TRACE EDEMA TO THE LOWER EXTREMITIES LUNGS ARE DIMINISHED BUT CLEAR AND ENCOURAGE TO DEEP BREATH OFTEN. PATIENT HAS ACTIVE BUT HYPO BOWEL SOUNDS AND HAS BEEN TALKATIVE AND SHE HAS BEEN S/P RUTURED APPENDICITIS AND HAS SURGERY ON THE THE . PATIENT WITH CHAUNCEY TO THE WOUND SITE. LAST SHIFT 150CC OUTPUT NOTED. SHE HAS BEEN ON CEFEPINE AND FLAGYL ORDERED IVPB. NO ADVERSE REACTION NOTED. PATIENT IS NORMAL SINUS ON THE MONITOR AND WITH EJECTION FRACTION OF 45-50%.
[2019-12-20 08:55] VITALS: BP 113/78
--- NOTE | 2019-12-20 12:00 | NUR ---
REMOVED PT TELE MONITOR. PT HAS BEEN TRANSFERED TO [facility]. NO SOB NOTED, PT IS STABLE. REMOVED 45ML FROM LEIGH DRAIN.
[2019-12-20 12:12] VITALS: BP 112/70
--- NOTE | 2019-12-20 13:00 | NUR ---
CHANGED THE DRESSING TO RAEGAN ABDOMNE DUE TO SATURATION. THE WOUND ITSELF IS CLEAN AND APPROXIMATED WELL. WILL CONTINUE TO MONITOR AND PATIENT TOLERATE THE DRESSING CHANGE WELL.
--- NOTE | 2019-12-20 13:00 | NUR ---
CHANGED THE DRESSING TO THE ABDOMEN DUE TO SATURATION. THE WOUND ITSELF IS CLEAN AND APPROXIMATED WELL. WILL CONTINUE TO MONITOR AND PATIENT TOLERATE THE DRESSING CHANGE WELL. = Note Type Description
--- NOTE | 2019-12-20 13:33 | NUR ---
Follow-up Nutrition Assessment: 237A BRE, LAURA MACHUCA 39F HR Dx: rapture appendicitis PMHx: Seizure, Hypothyroidism PSHx: none noted Labs: (12/19) WBC 12.6H, H/H 10/30L, K 3.4L, BUN 6L, Cr 0.5L, Ca 7.9L, ALT 13L, Albumin 2.1L (12/17) WBC 12.2H, H/H 10/7/32L, K 3.3L, CL 108H, BG 112H, (12/15) albumin 1.8L Meds: Maxipime, Trileptal, Keppra, Depakot, Lovenox, Folic acid, Zofran, [place], Flagyl, Colace, Keppra, Ipratropium, Morphine, Vitamin B12, Tylenol Diet: Mechanical soft PO Intake: No entry since last visit Wt: 71.668kg/157.7lbs; Bed scale: 71kg BMI: 29.9 Edema: none noted Last BM: 12/17 Skin: LEIGH drain in place and surgical incision wounds x 2 Joey: [address] (12/17), Per progress note (12/17), pt remained on O2 2L via n/c and still had high LEIGH output. Pt was seen lying in bed, verbally responsive, but slow to respond during bedside visit. Pt reported experiencing nausea and vomiting and denied diarrhea, constipation, chewing/swallowing difficulty. Pt had poor appetite, and according to patient, she felt nauseous after she ate and she will usually fall asleep, but she wanted/tried to eat. At home, pt followed a modified Atkins diet, which helped pt with her seizure instead of trying to lose weight. Pt had weight loss of 30lbs, but it was from a long time ago, and pt reported that her usual body weight was 135lbs. However, pt could not recall when was usual weight measured. Additionally, pt stated that ensure clear made her throw up, and she was agreeable to try ONS once a day to see if she can tolerate. RD Note (12/20/2019): Per bed huddle meeting (12/19) pt still has 150cc output in LEIGH drain today. Per progress note assessment (12/18): possible right lower lobe PNA, sepsis 2/2 acute perforated appendicitis, seizure, DVT. Pt was seen lying in bed during bedside visit. Pt reported small appetite, but she had been drinking ensure vanilla. Pt reported that she was able to tolerate ensure. Pt still had c/o vomiting in the morning today. Encouraged pt to increase PO intake, and recommended ensure BID. Pt was agreeable. Additionally, pt reported liking pancake and banana. Advised pt to have small frequent meals and have ensure between meals to avoid feeling nauseous. Estimated Nutritional Needs Based on adjusted body weight (54kg) Energy: 3224-2530 kcal/day (30-35 kcal/kg for sepsis) Protein: 81-108 g/day (1.5-2 g/kg for sepsis) Fluid: 0337-5666 mL/day (1 mL/kcal) Nutrition Diagnosis: 1. Inadequate energy and protein intake r/t poor PO intake a/e/b pt average PO intake of 28% meeting < 75% of estimated needs. (ongoing) 2. Altered GI function r/t raptured appendicitis a/e/b pt reported feeling nauseous and experiencing vomiting after eating. (ongoing) Intervention 1. Continue mechanical soft diet 2. Recommend ensure BID for breakfast and lunch. It will provide additional 700kcal and 40g protein. Monitor/Evaluate Goal: PO intake at least 75% of estimated needs Monitor: PO intake, Labs, GI function, Body weight, ONS intake F/U in 2-3 days as high risk 12/21-
--- NOTE | 2019-12-20 13:34 | NUR ---
1. Continue mechanical soft diet 2. Recommend ensure BID for breakfast and lunch. It will provide additional 700kcal and 40g protein.
--- NOTE | 2019-12-20 14:00 | NUR ---
NO CALL BACK YET FROM THE DR AND WILL CALL AGAIN FOR DIET HE "PROMISED" THE PATIENT OR VERIFY THE ORDERS. PATIENT AHS BEEN OOB AND ASKINF RO MORE PAIN MEDCIATIKON TO. ADVISE THE ORDERS HAVE CHANGED AND THAT THE DILAUDID IS NOT DUR YET PER ORDERS.
--- NOTE | 2019-12-20 14:00 | NUR ---
PT SLEEPING THIS TIME, RELAXED. NO SIGNS OF PAIN AND SOB THIS TIME. SAFETY PRECAUTIONS IN PLACE. WILL CONTINUE TO MONITOR.
[2019-12-20 16:58] VITALS: BP 102/64
--- NOTE | 2019-12-20 18:38 | NUR ---
PATIENT HAS BEEN TOLERATING DIET AND NO COMPLAINTS OF NAUSEA AT THIS TIME. SHE HAS BEEN OOB AND LEIGH OUTPUT AT 65CC.
--- NOTE | 2019-12-20 18:43 | NUR ---
PT AWAKE, RELAXED. SLOWLY EATING FOOD TO AVOID NAUSEA. TOLERATING DIET WELL. DENIES ANY PAIN AND SOB THIS TIME. LEIGH DRAINED 65CC THROUGHOUT SHIFT, REPLACED DRESSING ONCE THIS SHIFT. DRESSING IS DRY THIS TIME. VS STABLE. WILL CONTINUE TO MONITOR.
--- NOTE | 2019-12-20 19:45 | NUR ---
REPORT FROM GEETA TSE. PATIENT AXOX4 NO S/S OF DISTRESS OR DISCOMFORT. PT BREATHING EVEN AND UNLABORED ON RA. SPO2 98% CTBA GEN WEAKNESS PATIENT ABLE TO AMBULATE. PT FOUND SITTING UP IN BED. DENIES PAIN AT THIS TIME R WRIST IV RUNNING FLUIDS. NO S/S OF INFILTRATION. PT DOES SAY ITS SORE. SKIN WARM AND DRY. ABD DRESSING CDI LEIGH INTACT. 10ML OUTPUT. VOIDS FREELY IN RESTROOM. BED IN LOW POSITION. SIDE RAILS UPX2 CALL LIGHT WITHIN REACH
[2019-12-20 21:22] VITALS: BP 105/70
--- NOTE | 2019-12-20 22:18 | NUR ---
PATIENT VOMIT 50ML ORANGE LIQUID. PATIENT DECINED THE NAUSEA MEDICATION. " SOMETIMES IT MAKE ME MORE NAUSEOUS" AFTER VOMITING PATIENT FELT BETTER AND WAS ABLE TO REST. WILL CONTINUE TO MONITOR PATIENT AND OFFER SUPPORT. PATIENT BREATHING EVEN AND UNLABORED. NO S/S OF DISTRESS. PATIENTS IV INTACT NO S/S OF INFILTRATION.
[2019-12-21 05:11] VITALS: BP 116/74
--- NOTE | 2019-12-21 05:28 | NUR ---
DRESSING CHANGED. ABD SOAKED WITH DRAINAGE. LEIGH OUTPUT 20ML FOR A TOTAL OF 40 ML DUTING THE SHIFT. PATIENT AWAKE AND ALERT. NO S/S OF DISTRESS OR DISCOMFORT. BREATHING EVEB AND UNLABORED ON RA 99% SPO2. PATIENT IS USING SI AT BEDSIDE. PT DENIES NAUSEA AT THIS TIME. AMBULATES TO THE RESTROOM. WILL CONTINUE TO MONITOR PATIENT AND OFFER SUPPORT.
[2019-12-21 06:47] LABS: BASOPHIL % 0.3 % (0-2); PLATELET COUNT 375 x10^3mcL (130-400); RED CELL DISTRIBUTION WIDTH 14.3 % (11.5-14.5)
[2019-12-21 07:17] LABS: ALKALINE PHOSPHATASE 96 U/L (46-116); ALT/SGPT 17 U/L (14-59); AST/SGOT 23 U/L (15-37); BILIRUBIN TOTAL 0.44 mg/dL (0.20-1.00); CALCIUM 7.9 mg/dL (8.5-10.1); CARBON DIOXIDE 30.4 mmol/L (21-32); CHLORIDE SERUM 101 mmol/L (98-107); CREATININE SERUM 0.5 mg/dL (0.6-1.0); GFR1 > 60 mL/min; GLUCOSE SERUM 92 mg/dL (74-106); SODIUM SERUM 138 mmol/L (136-145)
[2019-12-21 07:43] LABS: ALBUMIN 1.9 g/dL (3.4-5.0); POTASSIUM SERUM 2.9 mmol/L (3.5-5.1); TOTAL PROTEIN, SERUM 5.7 g/dL (6.4-8.2)
[2019-12-21 07:57] VITALS: BP 116/77
--- NOTE | 2019-12-21 08:04 | NUR ---
RECEIVED PATIENT ALERT AND ORIENTED TIMES FOUR. IV INTACT AND DENIES PAIN TO THE SITE AT THIS TIME. PATIENT HAS BEEN OOB AND DRESSING TO THE ABDOMEN IS DRY AND INTACT BUT NEEDED ANOTHER CHANGE LAST NIGHT THE OUTPUT IS LESS TODAY BUT STILL PINKISH YELLOW. PATIENT HAS DIMINISHED BUT CLEAR BREATH SOUNDS AND BOWEL SOUNDS ARE HYPOACTIVE SHE IS DISTENDED AND MILDLY FIRM AND PATIENT HAS NO FEVER REPORTED OVERNIGHT. PATIENT HAS BEEN ON ANTIBIOTICS AND NO ADVERSE REACTION HAS BEEN SEEN. SHE REFUSED NAUSEA MEDICATION LAST NIGHT AND SEIZURE PRECAUTIONS IN PLACE AND NO REPORTS OF ANY SUCH ACTIVITY NOTED.
--- NOTE | 2019-12-21 08:20 | NUR ---
WHEEL LOADER OPERATOR VISITED PT RE-ENFORCED TEACHING ON INCENTIVE SPIROMETER USE. PT STATES SHE UNDERSTANDS AND WILL CONTINUE TO USE IT EVERY 2 HOURS WHEN AWAKE.
--- NOTE | 2019-12-21 08:30 | NUR ---
PAGED FOR PT's LOW K, 2.9. PT IS ASYMTPOMATIC THIS TIME. WILL CONTINUE TO MONITOR.
--- NOTE | 2019-12-21 09:04 | NUR ---
NEW ORDER FOR POTASSIUM RIDER RECIEVED FOR PATIENT POST PAGE FOR DR SILVERMAN. AWAITING PROCESSING INDICATED TO GIVE.
--- NOTE | 2019-12-21 09:10 | NUR ---
LEIGH OUTPUT 40ml, SEROUS. PJ DRESSING IS DRY THIS TIME. PT DENIES PAIN ON SITE.
--- NOTE | 2019-12-21 10:35 | NUR ---
NEW IV PLACED DUE TO PAIN TO THE SITE. TO START THE K RIDER ORDERED OF 40MEQ FOR POTASSIUM OF 2.9.
[2019-12-21 11:45] VITALS: BP 104/67
--- NOTE | 2019-12-21 12:49 | NUR ---
CONTINUED ON K RIDER ONE AND TOLERATED WELL SO FAR. NO COMPLAINTS OF PAIN AT THE SITE. .
--- NOTE | 2019-12-21 13:34 | NUR ---
PATIENT CONTINUED ON THE K RIDER NOW RUNNING AT 25 AND TOLERATED WELL. WILL CONTINUE TO MONITOR.
[2019-12-21 15:48] VITALS: BP 104/67
[2019-12-21 16:12] VITALS: BP 108/66
--- NOTE | 2019-12-21 16:38 | NUR ---
TOLERATE THE FIRST K RIDER AND NOW ORDERED PO AND THE SECOND. PATIENT DENIES PAIN AT THE SITE.
--- NOTE | 2019-12-21 18:18 | NUR ---
PATIENT SLEEPING QUIELY AND THE POTASSIUM RIDER CONTINUED WITHOUT DISTCOMFORT. CONTINUED TO MONITOR INDICATED.
--- NOTE | 2019-12-21 19:40 | NUR ---
[facility] PT IS AAOX4, DENIES HEADACHE/NAUSEA/DIZZINESS. PT IS MED SURG PATIETN, DENIES CHEST PAIN. PULSES ARE EQUAL BILATERALLY, NO EDEMA NOTED, ON LOVENOX SQ. PT HAS BILATERAL DIMINISHED BASES, ON RA, DENIES SOB. NO ACUTE DISTRESS NOTED, EVEN AND UNLABORED BREATHING. ABDOMEN IS SOFT AND ROUND, NO PAIN UPON PALPATION. NORMOACTIVE X4 QUADRANTS, LAST BM 12/19 REPORTED LOOSE. PT VOIDS WITHOUT DIFFICULTY, DENIES PAIN. PT DENIES GENERALIZED WEAKNESS. PT HAS ABDOMINAL SURGICAL SITE X2, CHAUNCEY INTACT. ABDOMINAL DRESSING IN PLACE, CDI. PT HAS LEIGH DRAIN IN PLACE, PURULENT MINIMAL DRAIN AT THIS TIME. IV TO RIGHT WRIST 22G. SITE INTACT, NO REDNESS OR SWELLING NOTED. PT IS CALM AND COOPERATIVE AT THIS TIME. BED IN LOWEST POSITION, CALL LIGHT WITHIN REACH. WILL CONTINUE TO MONITOR.
[2019-12-21 20:38] VITALS: BP 131/56
[2019-12-22] VITALS (7 sets, daily range): BP systolic 98–141; BP diastolic 59–81
--- NOTE | 2019-12-22 00:53 | NUR ---
PATIENT RESTING INTERMITTENTLY WITH EYES CLOSED. PATIENT'S ABDOMINAL DRESSING WAS CHANGED, MINIMAL PURULENT DRAINAGE AT THIS TIME. PATIENT REPORTED IMPROVED APPETITE, SANDWICH WAS GIVEN, PATIENT DENIES N/V. PATIENT DENIES CHEST PAIN/SOB/ABDOMINAL PAIN AT THIS TIME. ALL SAFETY MEASURES IN PLACE. BED IN LOWEST POSITION, CALL LIGHT WITHIN REACH. WILL CONTINUE TO MONITOR.
--- NOTE | 2019-12-22 04:45 | NUR ---
PATIENT COMMUNICATED PAIN IN ABDOMINAL SURGICAL SITE. NORCO PRN WAS ADMINISTERED. PROVIDED COMFORT MEASURES. ALL SAFETY MEASURES IN PLACE. BED IN LOWEST POSITION, CALL LIGHT WITHIN REACH.
--- NOTE | 2019-12-22 06:25 | NUR ---
PATIENT RESTING INTERMITTENTLY WITH EYES CLOSED. PATIENT DENIES CHEST PAIN/SOB. ABDOMINAL DRESSING CHANGED DURING THE SHIFT. LEIGH DRAIN REMAINS IN PLACE, 50ML PURULENT OUTPUT. PATIENT REMAINS WITH RIGHT WRIST 22G, SITE INTACT, NO REDNESS OR SWELLING NOTED. ALL SAFETY MEASURES IN PLACE. BED IN LOWEST POSITION, CALL LIGHT WITHIN REACH. WILL CONTINUE TO MONITOR.
[2019-12-22 06:54] LABS: BASOPHIL % 0.4 % (0-2); RED CELL DISTRIBUTION WIDTH 14.4 % (11.5-14.5)
[2019-12-22 07:10] LABS: PLATELET COUNT 402 x10^3mcL (130-400)
--- NOTE | 2019-12-22 07:34 | NUR ---
ENDORSED CARE TO DAYSHIFT NURSE. ALL QUESTIONS/CONCERNS ADDRESSED.
[2019-12-22 07:35] LABS: ALKALINE PHOSPHATASE 88 U/L (46-116); ALT/SGPT 18 U/L (14-59); AST/SGOT 23 U/L (15-37); BILIRUBIN TOTAL 0.3 mg/dL (0.20-1.00); CALCIUM 7.7 mg/dL (8.5-10.1); CHLORIDE SERUM 104 mmol/L (98-107); CREATININE SERUM 0.6 mg/dL (0.6-1.0); GFR1 > 60 mL/min; GLUCOSE SERUM 101 mg/dL (74-106); POTASSIUM SERUM 4.4 mmol/L (3.5-5.1); SODIUM SERUM 139 mmol/L (136-145)
[2019-12-22 07:45] LABS: ALBUMIN 1.9 g/dL (3.4-5.0); TOTAL PROTEIN, SERUM 5.5 g/dL (6.4-8.2)
--- NOTE | 2019-12-22 08:08 | NUR ---
PT. RECEIVED IN BED SLEEPING BUT AWAKEN TO NAME.CARE ASSURED.STILL DROWSY TO EAT BREAKFAST.VSS.AFEBRILE. NEEDS ARE BEING MET. NO ACUTE DISTRESS NOTED.
--- NOTE | 2019-12-22 14:02 | NUR ---
1. Continue mechanical soft diet 2. Continue ensure BID for breakfast and lunch. It will provide additional 700kcal and 40g protein.
--- NOTE | 2019-12-22 14:02 | NUR ---
Follow-up Nutrition Assessment: 237A BRE, LAURA MACHUCA 39F HR Dx: rapture appendicitis PMHx: Seizure, Hypothyroidism PSHx: none noted Labs: (12/21) WBC WNL, H/H 8.9/26L, BUN 3L, Ca 7.7L, albumin 1.9L (12/19) WBC 12.6H, H/H 10/30L, K 3.4L, BUN 6L, Cr 0.5L, Ca 7.9L, ALT 13L, Albumin 2.1L (12/17) WBC 12.2H, H/H 10/7/32L, K 3.3L, CL 108H, BG 112H, (12/15) albumin 1.8L Meds: Flagyl, Admire, Lovenox, Maxipime, Keppra, Mucinex, Depakote, Trileptal, Keppra, Folic acid, KCL, Zofran, Colace, Morphine, Vitamin B12 Diet: Mechanical soft PO Intake: (12/19) B:10%, D: 25%, (12/20) B: 50%, D: 65% *drinking ONS noted Wt: (12/21) 71.668kg/157.7lbs; Bed scale: 183.3lbs/83kg, (12/19) 71.668kg/157.7lbs; Bed scale: 71kg *wt gain, but pt's belongings on bed BMI: 29.9 Edema: No edema noted Last BM: 12/21 per pt Skin: surgical wound to abd, LEIGH drain and dressing in place Joey: [address] (12/19), Per bed huddle meeting (12/19) pt still has 150cc output in LEIGH drain today. Per progress note assessment (12/18): possible right lower lobe PNA, sepsis 2/2 acute perforated appendicitis, seizure, DVT. Pt was seen lying in bed during bedside visit. Pt reported small appetite, but she had been drinking ensure vanilla. Pt reported that she was able to tolerate ensure. Pt still had c/o vomiting in the morning today. Encouraged pt to increase PO intake, and recommended ensure BID. Pt was agreeable. Additionally, pt reported liking pancake and banana. Advised pt to have small frequent meals and have ensure between meals to avoid feeling nauseous. RD Note (12/22/2019): Per RN reassessment note (12/20) pt reported improved appetite. Per bed huddle meeting on 12/21, pt still has 65cc of drainage in her LEIGH drain. Pt was lying in bed during bedside visit. Per pt, she had improved appetite and she did not have nausea or vomiting after eating today. However, pt reported diarrhea. Per pt, she had all of her yogurt, 50% of her oatmeal, and she was able to finish the banana from breakfast. Pt said she was tolerating ensure, and she had been drinking them. Pt's current PO intake meets > 75% of the estimated needs. Estimated Nutritional Needs Based on adjusted body weight (54kg) Energy: 9334-8061 kcal/day (30-35 kcal/kg for sepsis) Protein: 81-108 g/day (1.5-2 g/kg for sepsis) Fluid: 8341-2148 mL/day (1 mL/kcal) Nutrition Diagnosis: 1. Inadequate energy and protein intake r/t poor PO intake a/e/b pt average PO intake of 28% meeting < 75% of estimated needs. (resolved) - pt PO intake improved and had better tolerance of diet and ONS 2. Altered GI function r/t raptured appendicitis a/e/b pt reported feeling nauseous and experiencing vomiting after eating. (resolved) - pt reported not feeling nauseous or having vomiting after eating Intervention 1. Continue mechanical soft diet 2. Continue ensure BID for breakfast and lunch. It will provide additional 700kcal and 40g protein. Monitor/Evaluate Goal: PO intake at least 75% of estimated needs Monitor: PO intake, Labs, GI function, Body weight, ONS intake F/U in 3-5 days as high risk 12/24-
--- NOTE | 2019-12-22 18:00 | NUR ---
PT IN BED RESTING QUIETLY AFTER DINNER.DENIES PAIN @ THIS TIME.AMBULATE HALLWAY SEVERAL TIMES TODAY.B/P STABLE. AFEBRILE.NEEDS ARE BEING MET. CALL LIGHT WITHIN REACH.
--- NOTE | 2019-12-23 02:48 | NUR ---
PATIENT AOX4 ABLE TO AMBULATE TO THE BATHROOM INDEPENDENTLY. LEIGH DRAIN SITE NOTED TO BE CLEAN DRY INTACT. RN CLEAN SITE WITH NS PAT DRY CHANGE DRESSING AT THIS TIME NO REDNESS NO EDEMA NOTED. CHAUNCEY INTACT.
[2019-12-23 05:13] VITALS: BP 102/65
--- NOTE | 2019-12-23 06:52 | NUR ---
35 ML CLEAR YELLOW OUTPUT ON THE LEIGH DRAIN FOR 12 HOURS NOC SHIFT.
[2019-12-23 06:57] LABS: CALCIUM 8.2 mg/dL (8.5-10.1); CARBON DIOXIDE 32.6 mmol/L (21-32); CHLORIDE SERUM 101 mmol/L (98-107); CREATININE SERUM 0.6 mg/dL (0.6-1.0); GFR1 > 60 mL/min; GLUCOSE SERUM 95 mg/dL (74-106); POTASSIUM SERUM 4.6 mmol/L (3.5-5.1); SODIUM SERUM 138 mmol/L (136-145)
--- NOTE | 2019-12-23 07:36 | NUR ---
RECEIVED PT FROM PM NURSE. PT IS AWAKE AND RESTING COMFORTABLY AT THIS TIME. NO FACIAL DISTRESS OR SOB NOTED. PT IS A/OX4. ABLE TO MAKE NEEDS KNOWN. DENIES SINGER/DIZZINESS. LUNG SOUNDS CTA. BREATHING E/U ON RA. MED SURG PT. DENIES CP/PRESSURE. PALPABLE PULSES. NO EDEMA NOTED. ACTIVE BSX4. ABD SOFT AND NON DISTENDED. DENIES N/V/D. VOIDS FREELY. LEIGH IN PLACE DRAINING MINIMAL PURULENT DRAINAGE. AMBULATORY BASELINE. ABD DRESSING IN PLACE. CDI. NO C/O PAIN AT THIS TIME. IV 22G TO R WRIST. KEPT TKO. BED AT LOWEST POSITION. CALL BUTTON WITHIN REACH. WILL CONTINUE TO MONITOR.
[2019-12-23 08:08] VITALS: BP 103/59
[2019-12-23 12:01] VITALS: BP 106/61
[2019-12-23 16:13] VITALS: BP 94/56
--- NOTE | 2019-12-23 17:36 | NUR ---
PATIENT C/O 8/10 ABD PAIN. ADMINISTERED PAIN MEDICATION PER EMAR. WILL REASSESS PAIN LEVEL.
--- NOTE | 2019-12-23 18:23 | NUR ---
NO ACUTE DISTRESS DURING SHIFT. PATIENT WAS SEEN AMBULATING DOWN THE GONSALES DURING SHIFT. WILL ENDORSE CARE TO PM SHIFT FOR CONTINUITY OF CARE.
[2019-12-23 19:49] VITALS: BP 99/59
--- NOTE | 2019-12-24 01:01 | NUR ---
Received pt in bed, awake Condition stable No signs of distres noted
[2019-12-24 05:07] VITALS: BP 91/56
--- NOTE | 2019-12-24 06:33 | NUR ---
Slept overnight, condition stable All due care rendered, no distress noted Ambulated to restroom, voided Abdominal pain, IV Morphine and PO Jerome given x1, reported relief Pain level tolerable this morning Abdominal incision CDI, LEIGH w/ 35 cc serous output this am
[2019-12-24 06:37] LABS: CALCIUM 8.3 mg/dL (8.5-10.1); CARBON DIOXIDE 33.1 mmol/L (21-32); CHLORIDE SERUM 100 mmol/L (98-107); CREATININE SERUM 0.6 mg/dL (0.6-1.0); GFR1 > 60 mL/min; GLUCOSE SERUM 94 mg/dL (74-106); PHOSPHOROUS 4.4 mg/dL (2.5-4.9); POTASSIUM SERUM 4.7 mmol/L (3.5-5.1); SODIUM SERUM 136 mmol/L (136-145)
[2019-12-24 07:28] VITALS: BP 99/57
--- NOTE | 2019-12-24 07:41 | NUR ---
NORCO PO PRN GIVEN FOR THROBBING AB PAIN 09/14. EXTRA FLUIDS GIVEN AND ENCOURAGED. RESP EVEN AND UNLABORED. NO DISTRESS NOTED. ON R/A. MED SURG PT. ABDOMEN SOFT, TENDER. BOWEL SOUNDS ACTIVE X4 QUADS. PT HAS 2 LOWER ABDOMEN AND ONE UMBILICUS INCISION CLOSED WITH CHAUNCEY COVERED WITH CDI DRESSING. LEIGH DRAIN IN PLACE WITH 10ML CLEAR LIGHT YELLOW FLUID NOTED. PT IS AMBULATORY. DISTAL PULSES MODERATLY PALPABLE. NO EDEMA, SKIN WARM. IV CATH S/L TO R WRIST. SITE WNL. CALL LIGHT WITHIN REACH. BED IN LOWEST POSITION. WILL CONTINUE TO MONITOR.
--- NOTE | 2019-12-24 09:07 | NUR ---
SCHEDULED MEDS GIVEN AND TOLERATED WELL. LOVENOX SQ GIVEN TO AMPARO. SITE WNL. PT STATES ABDOMINAL PAIN IS 3/10 AT THIS TIME. PT EDUCATED TO AMBULATE IN ROOM AND SIT IN BEDSIDE CHAIR TO INCREASE ACTIVITY. CALL LIGHT WITHIN REACH.
--- NOTE | 2019-12-24 11:13 | NUR ---
NACL 1/5 GM PO GIVEN. PT HAS DUPLICATE ORDER, VERIFIED WITH DR. SILVERMAN. SECOND DOSE HELD. DENIES PAIN. WILL CONTINUE TO MONITOR.
[2019-12-24 11:31] VITALS: BP 108/76
[2019-12-24 15:53] VITALS: BP 101/68
--- NOTE | 2019-12-24 16:21 | NUR ---
NORCO PO PRN GIVEN ORDERED FOR THROBBING ABDOMINAL PAIN 09/14. PT REPOSITIONED FOR COMFORT. CALL LIGHT WITHIN REACH.
--- NOTE | 2019-12-24 17:30 | NUR ---
IV CATH 20 STARTED TO LFA FOR IV CONTRAST. SITE WNL. COVERED WITH CDI DRESSING. PT TOLERATED PROCEDURE WELL. RESP EVEN AND UNLABORED. NO DISTRESS NOTED.
--- NOTE | 2019-12-24 18:58 | NUR ---
RESP EVEN AND UNLABORED. PT DENIES PAIN AND DISCOMFORT. ABDOMINAL DRESSING CDI. 25ML DRAINED FROM LEIGH DRAIN. IV CATH TO RW AND LFA, BOTH PATENT. NO S/S OF INFECTION OR INFILTRATION. DENIES PAIN. WILL ENDORSE ALL CARE TO NOC RN.
--- NOTE | 2019-12-24 19:30 | NUR ---
PATIENT RECEIVED IN BED, NO ACUTE DISTRESS NOTED. AAOX4, CALM AND COOPERATIVE. DENIES PAIN, SOB, N/V AT THIS TIME. ON ROOM AIR, BREATHING IS EVEN AND UNLABORED. PLAN OF CARE REVEIWED, VERBALIZED UNDERSTANDING. ABDOMINAL SURGICAL DRESSING IS CDI. LEIGH DRAIN WITH MINIMAL PURULENT DRAINAGE INSTRUCTED TO CALL WHEN IN NEED OF HELP. ALL NEEDS MET. SAFETY MAINTAINED. BED IS AT THE LOWEST POSITION, CALL LIGHT IS WITHIN REACH. WILL CONTINUE TO MONITOR.
[2019-12-24 20:14] VITALS: BP 97/61
[2019-12-25 05:06] VITALS: BP 105/54
--- NOTE | 2019-12-25 06:33 | NUR ---
PATIENT IS STABLE, NO ACUTE DISTRESS NOTED. DENIES PAIN, SOB, N/V. ALL NEEDS MET. SAFETY MAINTAINED. BED IS AT THE LOWEST POSITION, CALL LIGHT IS WITHIN REACH.REPORT TO BE GIVEN TO ONCOMING MORNING NURSE TO FOLLOW UP CARE.
[2019-12-25 06:38] LABS: CALCIUM 9.3 mg/dL (8.5-10.1); CARBON DIOXIDE 32.2 mmol/L (21-32); CHLORIDE SERUM 98 mmol/L (98-107); CREATININE SERUM 0.6 mg/dL (0.6-1.0); GFR1 > 60 mL/min; GLUCOSE SERUM 94 mg/dL (74-106); PHOSPHOROUS 4.4 mg/dL (2.5-4.9); POTASSIUM SERUM 4.8 mmol/L (3.5-5.1); SODIUM SERUM 129 mmol/L (136-145)
[2019-12-25 06:39] LABS: ALBUMIN 2.3 g/dL (3.4-5.0)
[2019-12-25 08:27] VITALS: BP 95/54
--- NOTE | 2019-12-25 10:38 | NUR ---
RECIEVED PT IN A STABLE CONDITION. BED IS IN THE LOW POSITION WUITH THE CALL LIGHT IN REACH. SEIZURE PRECAUTIONS IN PLACE. LEIGH DRAIN INTACT AND DRAINING TO GRAVITY. SHE IS A 39Y FEMALE ADMITTED FOR A RUPTURED APPENDICITIS ON 12/10. SHE IS AAOX4. WILL CONTINUE TO MONITOR.
[2019-12-25] MEDS ORDERED: AUGMENTIN 875-1 EACH PO (11:27)
[2019-12-25] MEDS ORDERED: NORCO1 TA2 PO (11:28)
[2019-12-25] MEDS ORDERED: FLAGYL500 MG PO (11:28)
[2019-12-25 11:53] VITALS: BP 94/49
[2019-12-25 15:37] VITALS: BP 94/49
--- NOTE | 2019-12-25 16:09 | NUR ---
THE PATIENT IS BEING PREPARED FOR DISCHARGE AND HAD THE ABDOMINAL LEIGH DRAIN REMOVED PER PROTOCOL BY ME AND WOUND PICTURE TAKEN AND FILED . ALL DISCHARGE PAPERWORK SIGNED AND FILED ACCORDINGLY AND SHE WILL BE DISCHARGED TO HOME. WILL CONTINUE TO MONITOR UNTIL HER FAMILY ARRIVES TO PICK HER UP.
--- NOTE | 2019-12-25 17:01 | NUR ---
pt discharged in a stable condition at 1700 with all interventions carried out per protocol.
== END 2019-12-25 17:03 | disposition home or self-care (01) | DRG 710 ==
LOC: ED 16:02 → DU 19:49 → MU 19:49 → DU 12-12 12:25 → MU 12-15 11:47 → DU 12-17 04:27 → MU 12-20 11:20
PROVIDERS: Emergency Medicine; Internal Medicine; Surgery; ADMIT Student in an Organized Health Care Education/Training Program; ATTEND Student in an Organized Health Care Education/Training Program
PROC: 0DTJ4ZZ Resection of Appendix, Percutaneous Endoscopic Approach (ICD-10-PCS; principal; 2019-12-13 12:30)
DX: A41.9 Sepsis, unspecified organism (principal); E43 Unspecified severe protein-calorie malnutrition; J18.1 Lobar pneumonia, unspecified organism; K35.32 Acute appendicitis with perforation, localized peritonitis, and gangrene, without abscess; E83.42 Hypomagnesemia; D53.1 Other megaloblastic anemias, not elsewhere classified; R56.9 Unspecified convulsions; D72.829 Elevated white blood cell count, unspecified; E03.9 Hypothyroidism, unspecified; E87.6 Hypokalemia; Z20.828 Contact with and (suspected) exposure to other viral communicable diseases; Z79.899 Other long term (current) drug therapy; Z88.8 Allergy status to other drugs, medicaments and biological substances; Z68.29 Body mass index [BMI] 29.0-29.9, adult
CPT/HCPCS: 82962; 83880; 84439; A9540; G0378; J0692; J0696; J1170; J1650; J2250; J2270; J2405; J2543; J3010; J3420; J3480; J3490; J7030; J7040; J7042; P9047; Q0092; Q9967